=== PATIENT | male | born 1970 ===

== ENCOUNTER 2021-07-31 01:20 | Emergency (ER) | payer MEDICAID ==
[~2021-07-31] VITALS: Ht 185.4 cm; Wt 85.0 kg
[2021-07-31] MEDS ORDERED: LORazepam 2 MG/ML, 1ML ONE (01:52)
[2021-07-31] MEDS ORDERED: LABETALOL 5MG/ML, 20ML ONE (01:52)
[2021-07-31] MEDS ORDERED: NITROGLYCERIN OINT 2%, 1GM TP ONE ×2 (01:52→02:00)
[2021-07-31 02:00] LABS: BASOPHILS % (AUTO) 1 % (0-1); EOSINOPHILS % (AUTO) 0 % (1-7); LYMPHOCYTES % (AUTO) 25 % (22-44); MEAN CORPUSCULAR HEMOGLOBIN 32.2 pg (27.5-34.5); MEAN CORPUSCULAR HGB CONC 34.9 g/dL (33.2-36.2); MONOCYTES % (AUTO) 6 % (2-9); NEUTROPHILS % (AUTO) 68 % (42-75); PLATELET COUNT 154 x10^3/uL (130-400); RED BLOOD COUNT 5.33 x10^6/uL (4.38-5.82); RED CELL DISTRIBUTION WIDTH 13.3 % (9.4-14.8)
[2021-07-31] MEDS ORDERED: LORazepam 2 MG/ML, 1ML IVPush ONE (02:00)
[2021-07-31] MEDS ORDERED: LABETALOL 5MG/ML, 20ML IVPush ONE (02:00)
[2021-07-31] MEDS ORDERED: SODIUM CHLORIDE FLUSH 10ML SYR IVF ONE (02:00)
[2021-07-31] MEDS ORDERED: PLEASE ENTER ALLERGIES MC SCH (02:00)
[2021-07-31 02:08] LABS: ALANINE AMINOTRANSFERASE 91 U/L (12-78); ALBUMIN 4.1 g/dL (3.4-5.0); ANION GAP 10 mmol/L (5-15); CALCIUM 9.4 mg/dL (8.5-10.1); CHLORIDE 108 mmol/L (98-107); CREATININE 1.31 mg/dL (0.7-1.3)
[2021-07-31 02:11] LABS: ALKALINE PHOSPHATASE 79 U/L (45-117); BILIRUBIN,TOTAL 0.4 mg/dL (0.2-1.0); TOTAL PROTEIN 8.1 g/dL (6.4-8.2)
[2021-07-31 02:52] VITALS: BP 143/98
--- NOTE | 2021-07-31 02:52 | NUR ---
Patient given discharge instructions and they have confirmed that they understand the instructions. Patient ambulatory with steady gait. NAD, all questions answered appropriately, denies additional needs at this time. No personal belongings left in room after discharge.
== END 2021-07-31 02:54 ==
LOC: ED 02:48
DX: I10 Essential (primary) hypertension (principal); F10.220 Alcohol dependence with intoxication, uncomplicated; R00.0 Tachycardia, unspecified; Y90.0 Blood alcohol level of less than 20 mg/100 ml
CPT/HCPCS: 36415; 80053; 80320; 85025; 93005; 96374; 99284; J2060; 96375; G0480